=== PATIENT | male | born 1940 | race Caucasian/White ===

== ENCOUNTER → 2019-07-15 | Outpatient (CLI) | payer MEDICARE, BC ==
--- NOTE | 2019-07-15 10:01 | XR ---
EXAMINATION TYPE: XR KUB DATE OF EXAM: 07/15/2019 COMPARISON: None HISTORY: Ureteral calculus TECHNIQUE: Abdomen is examined in frontal projection. FINDINGS: Stent is present on the left. There is a 1.1 cm calcification in the proximal left ureter. There may be a 0.6 similar calcification at the inferior pole left kidney. No additional calcificatio ns are evident. Normal bowel gas is present. Organomegaly is not evident. Psoas margins are normal. Degenerative busby ges are within the lumbar spine IMPRESSION: 1. 1.1 cm calcification adjacent to the proximal left ureter stent. 2. Small inferior pole left renal calcification.
== END | disposition home or self-care (01) ==
LOC: RADXRMAIN 08:55
PROVIDERS: ATTEND Urology
DX: N28.89 Other specified disorders of kidney and ureter (principal); Z96.0 Presence of urogenital implants
CPT/HCPCS: 74018

== ENCOUNTER → 2019-07-24 | Outpatient (CLI) | payer MEDICARE, BC ==
--- NOTE | 2019-07-24 11:18 | XR ---
EXAMINATION TYPE: XR KUB DATE OF EXAM: 07/24/2019 Comparison: 07/15/2019 Clinical History: 79-year-old male Left Renal Stone Findings: Left ureteral stent remains in place. Extensive bowel gas and content obscuring the renal shadows tho ugh with 8 mm calculus in the expected lower pole of the left kidney. The previously seen 1.07 m calc ification along the upper left ureteral stent is not clearly identified. Nonobstructive bowel gas pattern but with gassy bowel throughout. Impression: 1. Left ureteral stent. Nonobstructive 8 mm left lower pole renal calculus. 2. The previously seen 1.0 cm calculus along the proximal third aspect of the left stent is not clear ly seen on the present exam.
== END | disposition home or self-care (01) ==
LOC: RADXRMAIN 10:49
PROVIDERS: ATTEND Urology
DX: N20.0 Calculus of kidney (principal); Z96.0 Presence of urogenital implants
CPT/HCPCS: 74018

== ENCOUNTER → 2021-08-11 | Outpatient (CLI) | payer MEDICARE ==
--- NOTE | 2021-08-11 12:46 | XR ---
EXAMINATION TYPE: XR KUB DATE OF EXAM: 08/11/2021 HISTORY: Pain Comparison: 07/24/2019Single KUB is submitted for interpretation. Findings: Right renal calculi: 4.7 mm right renal calculus. Right ureteral calculi: None Visualized. Left renal calculi: 7.7 mm left renal calculus. Left ureteral calculi: Left-sided ureteral stent has been removed since prior study. There is a 9 mm calculus within the left hemipelvis which could reflect a distal ureteral calculus. This could also reflect a phlebolith however was not present previously. Pelvic calcifications: Several small phleboliths noted. Bowel gas pattern is unremarkable. No free air. No mass effects. IMPRESSION: 1. As above
== END | disposition home or self-care (01) ==
LOC: RADXRMAIN 12:04
PROVIDERS: ATTEND Urology
DX: N20.0 Calculus of kidney (principal); I87.8 Other specified disorders of veins
CPT/HCPCS: 74018